=== PATIENT | male | born 1990 | race Caucasian/White ===

== ENCOUNTER 2016-05-01 22:55 | Emergency (ER) | payer BC, OTHER ==
[~2016-05-01] VITALS: Ht 167.6 cm; Wt 65.2 kg
[~2016-05-01 22:55] MED LIST: CYCL10TA6 PO; DIAZ10TA PO; GABA-113 PO; OXYC1TAB3 PO
[2016-05-01 23:01] VITALS: TEMP 36.8; Ht 167.6 cm; Wt 65.2 kg
[2016-05-01] MEDS ORDERED: MoRPHine SULFATE 10 MG/ML CARP/VIAL IM STA (23:24)
[2016-05-01] MEDS ORDERED: GABA800T PO (23:34)
[2016-05-01] MEDS ORDERED: CYCLOBENZAPRINE HCL 10 MG TAB PO STA (23:47)
--- NOTE | 2016-05-02 00:28 | EMERGENCY ROOM VISIT NOTE ---
History First contact with patient: 23:06 Chief Complaint: BACK PAIN Stated Complaint: LOWER BACK PAIN, PAIN SHOOTING DOWN LEFT LEG History of Present Illness The patient is a 25 year old male who presents to the Emergency Room with complaints of ongoing low back pain for the past several years that radiates to his right leg is giving firstly worse. He had back surgery last year. He follows with [facility]. He is on chronic narcotics and muscle relaxants. Patient describes the pain as aching, ranging in severity 8 out of 10 worse with movement and better with rest. Patient denies loss of bowel or bladder control, saddle anesthesia, fever, chills, IV drug abuse, abdominal pain, chest pain or any other medical complaints. Patient states he's done physical therapy with no improvement of symptoms. He has an appointment in May for follow-up with spine. He is requesting an earlier appointment. Patient is also requesting imaging on his back. Review of Systems See HPI for pertinent positives & negatives. A total of 10 systems reviewed and were otherwise negative. Past Medical/Surgical History Back pain Social History Smoking Status: Current Every Day Smoker Alcohol Use: none Drug Use: none Marital Status: single Housing Status: lives with family Occupation Status: employed Current/Historical Medications Scheduled Gabapentin (Neurontin), 800 MG PO BID Scheduled PRN Diazepam (Valium), 5 MG PO Q8 PRN for Anxiety Oxycodone Ir (Roxicodone Ir), 1-2 TAB PO Q6 PRN for Pain Allergies Coded Allergies: No Known Allergies (Unverified , 05/01/16) Physical Exam Vital Signs Date Time Temp Pulse Resp B/P Pulse Ox O2 Delivery O2 Flow Rate FiO2 05/01/16 23:01 36.8 98 20 160/80 99 Room Air Physical Exam VITALS: Vitals are noted on the nurse's note and reviewed by myself. Vital signs stable. GENERAL: White male walking around treatment room, in no acute distress, nondiaphoretic, well-developed well-nourished. SKIN: Capillary reflex less than 2 seconds. HEENT: Normocephalic. PERRLA. EOMI. Nares patent. Mucous membranes moist. Neck is supple without nuchal rigidity. HEART: Regular rate and rhythm without murmurs gallops or rubs. LUNGS: Clear to auscultation bilaterally without wheezes, rales or rhonchi. No retractions or accessory muscle use. ABDOMEN: Positive bowel sounds x 4. Normal tympanic percussion. Soft, nontender, without masses or organomegaly. Melo sign negative. No guarding or rebound tenderness. MUSCULOSKELETAL: No gross musculoskeletal defects. No thoracic tenderness on exam. Minimal lumbar tenderness on exam. Positive straight leg raise on the right. Patient can walk on toes and heels. 5 out of 5 strength throughout. NEURO: Patient was alert and oriented to person place and time. Normal sensation to light and sharp touch. Deep tendon reflexes 2+ patella. No focal neurological deficits. Medical Decision & Procedures Medications Administered Medications (Trade) Dose Ordered Sig/Keila Route Start Time Stop Time Status Last Admin Dose Admin Morphine Sulfate (MoRPHine SULFATE INJ) 8 mg NOW STAT IM 05/01/16 23:24 05/01/16 23:26 DC 05/01/16 23:35 8 MG Cyclobenzaprine HCl (Flexeril Tab) 10 mg NOW STAT PO 05/01/16 23:47 05/01/16 23:48 DC 05/01/16 23:52 10 MG ED Course Prior records/ancillary studies reviewed. Triage Nursing notes reviewed. Additional history obtained from friend. The patient's history was concerning for back pain. Differential diagnosis: Etiologies such as musculoskeletal, disc herniation, fracture, aortic disease, metastatic disease, cord compression, discitis, infection, renal colic, gastrointestinal, acute exacerbation of chronic back pain, sciatica, cauda equina, as well as others were entertained. Physical findings: As above. No focal neurologic findings noted. ER treatment provided: Morphine IM On reassessment the patient felt better. Diagnostics interpreted by me: Imaging studies: CT L SPINE: No evidence of acute fracture. Postsurgical changes at L5-S1 with the right L5 screw extending through the facet joint and the right anterolateral aspect of the central canal. Evaluation limited by hardware artifact. Grade 2 anterolisthesis at L5-S1. This appears to be consistent with lumbar radiculopathy. Patient was neurovascularly and neurologically intact. No deficits on exam. Case management will contact his spine doctor to try to get an earlier appointment. He was advised to follow-up as scheduled and to continue his current regimen as outlined by spine doctor. He is advised to return to the ER immediately for severe pain, inability to walk, loss of bowel bladder control, worsening signs or symptoms or as needed. The patient's physical examination and detailed history did not reveal any red flags for back pain such as those listed in the differential diagnosis. Therefore advanced diagnostics and consultations were felt to be unwarranted. By the evaluation outlined above emergent etiologies such as fracture, aortic disease, metastatic disease, infection, renal colic, gastrointestinal, cord compression, cauda equina, as well as others were deemed relatively unlikely. The pt informed about the findings as listed above. All questions were answered and pleased with the treatment. Return instructions were outlined and the patient was discharged in stable condition. Referral: The patient was referred back to spine or primary care physician for follow-up in 2 to 3 days for a recheck of the current condition. Medical Decision As above [place] Drug Monitoring Program Search Results: patient reviewed within database, see additional documentation (patient receives chronic narcotics) Impression Primary Impression: Lumbar radiculopathy Departure Information Dispostion Home / Self-Care Condition GOOD Referrals Anthony Reaves M.D. (PCP) Patient Instructions My [facility] Additional Instructions DO NOT drive, drink alcohol, operate machinery, or perform dangerous activities today. You were given medications in the ER that can affect your ability to safely function or operate a vehicle. Continue your Oxycodone (OxyIR) 5mg: Take 1-2 pills every four hours for breakthrough pain. Avoid alcohol, operating machinery or dangerous equipment, working on ladders or roofs, DRIVING, or situations where being under the influence may be dangerous. It is recommended to use an [id number] stool softener such as Colace, 100mg twice daily while taking this medication to avoid constipation. Ibuprofen(Motrin, Advil) may be used for fever or pain. Use 600mg every six hours as needed. Take with food. Avoid using more than 2400mg in a 24 hour period. Do not use 2400mg per day for more than three consecutive days without physician direction. Prolonged inappropriate use can lead to stomach upset or ulcers. This medication can be taken if you need to drive, work, or perform activities which may be dangerous when taking narcotic pain medication. (AND/OR) Acetaminophen(Tylenol) may be used for fever or pain. Use 1000mg every six hours as needed. Avoid using more than 3000mg in a 24 hour period. This medication can be taken if you need to drive, work, or perform activities which may be dangerous when taking narcotic pain medication. Rest and avoid heavy lifting until your symptoms resolve and then gradually return to full activity. A good rule of thumb is if it hurts your back to perform a certain activity, then it should be avoided until you are healthy again. A heating pad, warm compresses, or a hot shower may help with tight muscles and can be done several times a day as needed. Continue current medications. Return to the ER immediately for any numbness, tingling, severe pain, loss of control of your bowels or bladder, inability to walk, or as needed. Follow up with your primary care physician/orthopedics spine within 3-5 days for a recheck of your current condition.
[2016-05-02 00:35] VITALS: BP 160/80; PULSE 60; O2SAT 99
--- NOTE | 2016-05-02 07:42 | DIAGNOSTIC IMAGING REPORT ---
CT LUMBAR SPINE WITHOUT CT DOSE: 595.81 mGy.cm CLINICAL HISTORY: Low back pain with right leg radiculopathy. TECHNIQUE: Helical images were acquired in transverse plane. Reformatted sagittal and coronal images were reviewed. CONTRAST: No contrast was administered COMPARISON STUDY: 08/19/2015 FINDINGS: L1-2 level: There is no evidence of significant disc bulge or focal herniation. There is no evidence of spinal or foraminal stenosis. L2-3 level: There is no evidence of significant disc bulge or focal herniation. There is no evidence of spinal or foraminal stenosis. L3-4 level: There is no evidence of significant disc bulge or focal herniation. There is no evidence of spinal or foraminal stenosis. L4-5 level: There is a minor circumferential disc bulge. There is minor tract or spinal canal narrowing. There is no significant foraminal narrowing L5-S1 level: There are postsurgical changes of an L5-S1 discectomy and interbody fusion. There is a posterior laminectomy. There are endplate erosive changes. There is a grade 1-2 spondylolisthesis of L5 on S1. There is posterior pedicle screw fixation. The right screw traverses the right facet joint as well as the lateral aspect of the spinal canal. This remains unchanged in appearance when compared the prior July 2015 study. IMPRESSION: 1. No significant change from the prior July 2015 study 2. Postsurgical changes at the L5-S1 level 3. The right L5 interpedicular screw extends to the L4-5 facet joint. 4. Grade 1-2 spondylolisthesis of L5 on S1. Electronically signed by: Nik Emerson M.D. 05/02/2016 7:40 AM Dictated Date/Time: 05/02/2016 7:30 AM
== END 2016-05-02 00:32 | disposition home or self-care (01) ==
LOC: C.EDB 22:56 → C.EDC 05-02 00:32
DX: M54.16 Radiculopathy, lumbar region (principal); F17.200 Nicotine dependence, unspecified, uncomplicated

== ENCOUNTER 2016-05-28 22:54 | Emergency (ER) | payer BC, OTHER ==
[~2016-05-28] VITALS: Ht 167.6 cm; Wt 66.4 kg
[~2016-05-28 22:54] MED LIST changes: -CYCL10TA6 PO; -GABA-113 PO; +GABA800T PO
[2016-05-28 23:02] VITALS: Ht 167.6 cm; Wt 66.4 kg
[2016-05-29] MEDS ORDERED: MoRPHine SULFATE 10 MG/ML CARP/VIAL IM STA (00:20)
--- NOTE | 2016-05-29 00:25 | EMERGENCY ROOM VISIT NOTE ---
History Report prepared by Eb: Ashley Williamson Under the Supervision of: Dr. Sylvia Ross D.O. First contact with patient: 23:45 Chief Complaint: BACK PAIN Stated Complaint: SEVERE BACK PAIN History of Present Illness The patient is a 25 year old male who presents to the Emergency Room with complaints of worsening lower back pain starting two weeks C[employer]. The patient rates his current pain as a 9/10 in severity. The patient states that he has had a spinal transfusion about 1 year ago. He states he was seen at the ED about 1 month ago for worsening pain and had a CT scan. The patient states he saw his surgeon at [facility] and they informed him that he needs to make a decision for the possibility of another surgery needed for a screw that has shifted. The patient states that he has had weakness in his legs ,and numbness in both feet from his ankles down. The patient states that the pain in his back radiates down both his legs. The patient denies any loss of control of his bowels or bladder but states he has been experiencing some constipation. The patient states that his surgeon gave him 5 mg Oxycodone to take twice a day but he states that it does not relive his pain. The patient states that he is having another MRI for possibly upcoming surgeon in 10 days. The patient states that he did not take his second dose of Valium after work today because he came straight into the ED tonight. The patient states he takes Valium twice a day every day. Source of History: patient Onset: two weeks C[employer] C[employer] MEAT Position: back (lower) Symptom Intensity: 9/10 Timing: worsening Associated Symptoms: + numbness (both feet from his ankles down), + weakness (both legs) Note: Associated symptoms: constipation. Patient denies loss of control of bladder or bowels. Review of Systems See HPI for pertinent positives & negatives. A total of 10 systems reviewed and were otherwise negative. Past Medical & Surgical Surgical Problems: (1) H/O Spinal surgery Family History Patient reports no known family medical history. Social History Smoking Status: Current Every Day Smoker Alcohol Use: none Drug Use: none Marital Status: single Housing Status: lives with family Occupation Status: employed Current/Historical Medications Scheduled Gabapentin (Neurontin), 800 MG PO BID Scheduled PRN Diazepam (Valium), 5 MG PO Q8 PRN for Anxiety Oxycodone Ir (Roxicodone Ir), 1-2 TAB PO Q6 PRN for Pain Allergies Coded Allergies: No Known Allergies (Unverified , 05/29/16) Physical Exam Vital Signs Date Time Temp Pulse Resp B/P Pulse Ox O2 Delivery O2 Flow Rate FiO2 05/29/16 01:04 36.7 100 18 145/89 99 05/29/16 00:56 100 18 158/100 18 Room Air 05/28/16 23:02 36.7 93 20 148/80 99 Room Air Physical Exam HEENT: Head - normocephalic and atraumatic Pupils are equal, round, and reactive to light. Extraocular eye muscles are intact, and sclera are anicteric. Nose - moist nasal mucosa without discharge. Mouth - moist buccal mucosa. Oropharynx is nonerythematous and there is no tonsillar exudate or edema noted. Neck: Supple; no JVD, nuchal rigidity, cervical lymphadenopathy. Heart: Regular rate and rhythm. There is a normal S1 and S2 with no murmurs, clicks, or gallops appreciated. Lungs: Clear to auscultation bilaterally with no wheezes, rales, or rhonchi. Abdomen: Soft, completely nontender, nondistended, with good bowel sounds. There are no palpable pulsatile masses or hepatosplenomegaly. There is no guarding, rigidity, or rebound noted. Back: Reproducible discomfort over the lumbar spine scar and bilateral PSIS. Extremities: No evidence of cyanosis, clubbing, or edema. There are easily palpable peripheral pulses. Skin: warm and dry with good turgor and no rashes. Medical Decision & Procedures Medications Administered Medications (Trade) Dose Ordered Sig/Keila Route Start Time Stop Time Status Last Admin Dose Admin Morphine Sulfate (MoRPHine SULFATE INJ) 8 mg NOW STAT IM 05/29/16 00:20 05/29/16 00:21 DC 05/29/16 00:35 8 MG Procedure Medications Administered: Morphine Sulfate ED Course 0011: Past medical records reviewed. The patient was evaluated in room A3. A complete history and physical exam was performed. 0020: Ordered Morphine Sulfate 8 mg IM. 0034: The nursing staff informed me that the patient is expressing the desire to sign out AMA. 0035: I discussed with the patient that he just received a narcotic and is not able to leave yet. 0110: Upon reevaluation, the patient was resting comfortably. The patient was discharged home. Medical Decision The patient is a 25 year old male who presents to the ED with lower back pain. Differential diagnosis includes but is not limited to cauda equina syndrome, lumbar radiculopathy, acute exacerbation of chronic back pain, and drug seeking behavior. The patient has a known history of failed lumbar spinal surgery. He is currently being followed at [facility] for this. He underwent CT scan of the lumbar spine recently and had follow-up arranged at [facility]. They have ordered the patient to have MRI of the lumbar spine and explained that he will need to make a decision with regards to subsequent spinal surgeries and revision of hardware. The patient presents here today stating that he is having low back pain that is unrelenting despite taking his dose of gabapentin, oxycodone, and Valium. The patient denies any loss of control of his bowels or bladder. He states that he sometimes has difficulty moving his bowels because of constipation. The patient describes low back pain that extends into both buttocks and through to both of his legs. He explains that his symptoms are exactly the same as they were 2 months ago but no longer wants to deal with the pain. He does describe weakness in both of his legs which is unchanged from 2 months ago. The patient was given substernal pain medication here in the emergency department was encouraged to follow up this morning with the folks at [facility]. [place] Drug Monitoring Program Search Results: patient reviewed within database Drug Monitoring Findings: coincided with the patient's descriptions of prescriptions. Impression Primary Impression: Low back pain Scribe Attestation The scribe's documentation has been prepared under my direction and personally reviewed by me in its entirety. I confirm that the note above accurately reflects all work, treatment, procedures, and medical decision making performed by me. Departure Information Dispostion Home / Self-Care Referrals Anthony Reaves M.D. (PCP) Forms HOME CARE DOCUMENTATION FORM, IMPORTANT VISIT INFORMATION Patient Instructions My [facility] Additional Instructions Follow up with [facility] with regards to your surgery. Take the oxycodone and valium as directed
[2016-05-29 01:04] VITALS: BP 145/89; PULSE 100; TEMP 36.7; O2SAT 99
== END 2016-05-29 01:00 | disposition home or self-care (01) ==
LOC: C.EDB 22:55 → C.EDA 05-29 01:00 → CANBEDREQ 05-29 01:00
DX: M54.5 Low back pain (principal); F17.210 Nicotine dependence, cigarettes, uncomplicated; Z79.899 Other long term (current) drug therapy

== ENCOUNTER 2016-08-16 19:46 | Emergency (ER) | payer BC, OTHER ==
[~2016-08-16] VITALS: Ht 167.6 cm; Wt 57.9 kg
[2016-08-16 19:53] VITALS: Ht 167.6 cm; Wt 57.9 kg
[2016-08-16] MEDS ORDERED: SODIUM CHLORIDE 0.9% 1000ML 1,000 ML IV STA (20:58)
[2016-08-16] MEDS ORDERED: MoRPHine SULFATE 10 MG/ML CARP/VIAL IV STA (20:58)
[2016-08-16] MEDS ORDERED: ONDANSETRON INJ 2 MG/ML 2 ML VIAL IV STA (20:58)
[2016-08-16] MEDS ORDERED: MORP1TAB11 PO (21:12)
--- NOTE | 2016-08-16 21:16 | DIAGNOSTIC IMAGING REPORT ---
SINGLE VIEW CHEST CLINICAL HISTORY: Dyspnea. FINDINGS: An AP, portable, upright chest radiograph is compared to study dated 07/11/2015. The examination is degraded by portable technique and patient rotation. The cardiomediastinal silhouette is unremarkable. The lungs and pleural spaces are clear. No pneumothorax is seen. The bony thorax is grossly intact. IMPRESSION: No active disease in the chest. Electronically signed by: Thompson Chand M.D. 08/16/2016 9:14 PM Dictated Date/Time: 08/16/2016 9:14 PM
[2016-08-16 22:04] LABS: BASO % 0.5 %; BASO ABS # 0.05 K/uL (0-0.2); EOS % 2.1 %; HEMATOCRIT 36.2 % (42-52); IG% 0.3 %; LYMPH % 26.9 %; LYMPH ABS # 2.86 K/uL (1.2-3.4); MEAN CELL VOLUME 60.1 fL (80-100); MEAN CORPUSCULAR HEMOGLOBIN 19.3 pg (25-34); MEAN PLATELET VOLUME 8.8 fL (7.4-10.4); MONO % 7.5 %; NEUT % 62.7 %; PLATELET COUNT 461 K/uL (130-400); RED BLOOD COUNT 6.02 M/uL (4.7-6.1); WHITE BLOOD COUNT 10.65 K/uL (4.8-10.8)
[2016-08-16 22:21] LABS: ALT/SGPT 30 U/L (12-78); BLOOD UREA NITROGEN 16 mg/dl (7-18); BUN/CREATININE RATIO 11.9 (10-20); CALCIUM 9.5 mg/dl (8.5-10.1); CARBON DIOXIDE 31 mmol/L (21-32); CHLORIDE 100 mmol/L (98-107); GLUCOSE 84 mg/dl (70-99); POTASSIUM 3.6 mmol/L (3.5-5.1); SODIUM 138 mmol/L (136-145)
[2016-08-16] MEDS ORDERED: HYDROmorphone INJ 1 MG/ML SYR IV STA ×2 (22:21→23:59)
[2016-08-16 22:24] LABS: ALKALINE PHOSPHATASE 111 U/L (45-117); AST/SGOT 15 U/L (15-37)
[2016-08-16 22:36] LABS: URINE APPEARANCE CLOUDY (CLEAR); URINE BILIRUBIN NEG (NEG); URINE COLOR YELLOW; URINE NITRITE POS (NEG); URINE SPECIFIC GRAVITY 1.028 (1.000-1.030); UROBILINOGEN NEG (NEG)
[2016-08-16 22:38] LABS: MANUAL MICROSCOPIC REQUIRED? NO; REVIEW REQ? NO
[2016-08-16 22:40] LABS: COMPLETE YES; MICROCYTOSIS PRESENT; OVALOCYTES 1+
[2016-08-16] MEDS ORDERED: OPTIRAY 320 IV PRN (23:15)
[2016-08-17] MEDS ORDERED: CIPR1TAB10 PO (00:51)
[2016-08-17 00:57] VITALS: BP 117/61; PULSE 68; TEMP 36.8; O2SAT 98
[2016-08-17] MEDS ORDERED: CIPROFLOXACIN 500MG HOME PACK PO ONE (01:00)
--- NOTE | 2016-08-17 02:23 | EMERGENCY ROOM VISIT NOTE ---
ED Visit Note First contact with patient: 20:39 Chief Complaint: Pain and fever. History of Present Illness: Mr. Vaca is a 25-year-old white male who ambulates into the ED accompanied by female friend and his father. Historically patient reports on 08/02/2016 he had removal of posterior L5-S1 pedicle screw instrumentation and anterior removal of L5-S1 interbody with L5- S1 placement of SynFix low-pressure device and anterior arthrodesis at [facility]. He was discharged on August 07. His hospital course was not complicated and he was discharged home with office follow-up on September 04. Patient reports since being discharged he has not been able to control his pain at his surgical sites. He reports he has noticed a lot of redness, eructation and drainage from his surgical sites. He has difficulty describing his discomfort in these areas. He rates his discomfort 9/10. His pain is nonradiating. His pain worsens with palpation. He has not identified any alleviating factors related to the pain. He reports he has been taking his prescribed MS Contin and Percocet without relief of his discomfort. Associated with his pain he reports he has noticed erythema and edema around his incision site, he has been experiencing fever, purulent drainage from his wound and a numbness sensation in the left groin area. He also reports he is mildly short of breath but this is been ongoing since his last admission and has not worsened in intensity and he has noted urinary burning without increased her nares frequency or hematuria.. He denies chills, sweats, skin eruptions, skin color changes, chest pain, palpitations, orthopnea, dependent edema, abdominal pain, vomiting, decreased appetite, rectal bleeding, black/tarry stools. Review of Systems: As noted above in history of present illness. All body systems were reviewed and found to be negative as noted above. Past Medical History: As previously noted and hypertension, unspecified skin disorder. Current Medications: Morphine, Neurontin, OxyIR and Valium. Allergies to Medications: Patient denies. Social History: Patient is currently employed; he feels safe in his home environment; he admits to tobacco use. Physical Examination: Vital Signs: Date Time Temp Pulse Resp B/P (MAP) Pulse Ox O2 Delivery O2 Flow Rate FiO2 08/17/16 00:57 36.8 68 18 117/61 98 6/23/17 00:17 68 18 117/61 98 Room Air 08/16/16 22:15 84 18 149/87 95 Room Air 08/16/16 19:53 36.8 106 18 124/75 95 Room Air GENERAL: 25-year-old male in moderate distress due to pain, nontoxic-appearing, afebrile and hemodynamically stable. NEUROLOGICAL: Awake, alert and oriented to person, place and time. Answering questions appropriately and following commands. Normal gait. Good hand eye coordination. No focal motor sensory deficits. SKIN: Warm, dry and pink. Abdomen: The patient's surgical site is clean dry and intact. I do not see any lymphangitis and I do not palpate any abscess. Do not appreciate any drainage from the incision site. Lumbar Back. The patient's surgical site is clean dry and intact. I do not see any lymphangitis and I do not palpate any abscess. Do not appreciate any drainage from the incision. HEENT: Atraumatic and normocephalic. PERRLA. Sclera white and conjunctiva pink. No drainage from naris. Oral cavity moist and pink. Pharynx is nonerythematous or edematous. Speech normal. No lymphadenopathy. Trachea midline. No jugular venous distention. BACK: No tenderness over the bony cervical and thoracic spine. Patient does have moderate tenderness over the bony spine in the area of his incision just left of the lumbar spine. I do not appreciate any bony crepitus, bony deformity or ecchymosis. Because of his pain he refused range of motion testing and straight leg raise testing. No CVA tenderness. THORAX: Lungs sounds are clear to auscultation and equal bilaterally with symmetrical chest wall. No wheezing, rales or rhonchi. HEART: Regular rate and rhythm. No gallops, rubs or murmurs are appreciated. ABDOMEN: Flat, soft and nontender. Positive bowel sounds in all quadrants. No guarding, rigidity or organomegaly. EXTREMITIES: Moves all extremities well on command and with purpose. All distal neurovascular statuses are intact and equal bilaterally. Patient refused deep tendon reflex testing. 4/5 muscle strength in flexion and extension, pronation and supination and internal rotation of the hips and plantar flexion and dorsiflexion of the ankles and great toes. He was able to distinguish light sensations through all dermatomes of the legs. ED Course: Patient is assessed as noted above. Patient's medication list was reviewed. Laboratory Testing: Test 08/16/16 20:50 08/16/16 22:15 Range/Units White Blood Count 10.65 4.8-10.8 K/uL Red Blood Count 6.02 4.7-6.1 M/uL Hemoglobin 11.6 14.0-18.0 g/dL Hematocrit 36.2 42-52 % Mean Corpuscular Volume 60.1 80-100 fL Mean Corpuscular Hemoglobin 19.3 25-34 pg Mean Corpuscular Hemoglobin Concent 32.0 32-36 g/dl Platelet Count 461 130-400 K/uL Mean Platelet Volume 8.8 7.4-10.4 fL Neutrophils (%) (Auto) 62.7 % Lymphocytes (%) (Auto) 26.9 % Monocytes (%) (Auto) 7.5 % Eosinophils (%) (Auto) 2.1 % Basophils (%) (Auto) 0.5 % Neutrophils # (Auto) 6.69 1.4-6.5 K/uL Lymphocytes # (Auto) 2.86 1.2-3.4 K/uL Monocytes # (Auto) 0.80 0.11-0.59 K/uL Eosinophils # (Auto) 0.22 0-0.5 K/uL Basophils # (Auto) 0.05 0-0.2 K/uL RDW Standard Deviation 34.1 36.4-46.3 fL RDW Coefficient of Variation 16.0 11.5-14.5 % Immature Granulocyte % (Auto) 0.3 % Immature Granulocyte # (Auto) 0.03 0.00-0.02 K/uL Microcytosis PRESENT Ovalocytes 1+ Sodium Level 138 136-145 mmol/L Potassium Level 3.6 3.5-5.1 mmol/L Chloride Level 100 98-107 mmol/L Carbon Dioxide Level 31 21-32 mmol/L Anion Gap 7.0 3-11 mmol/L Blood Urea Nitrogen 16 7-18 mg/dl Creatinine 1.30 0.60-1.40 mg/dl Est Creatinine Clear Calc Drug Dose 70.5 ml/min Estimated GFR () 87.3 Estimated GFR (Non- 75.3 BUN/Creatinine Ratio 11.9 10-20 Random Glucose 84 70-99 mg/dl Calcium Level 9.5 8.5-10.1 mg/dl Total Bilirubin 0.2 0.2-1 mg/dl Direct Bilirubin < 0.1 0-0.2 mg/dl Aspartate Amino Transf (AST/SGOT) 15 15-37 U/L Alanine Aminotransferase (ALT/SGPT) 30 12-78 U/L Alkaline Phosphatase 111 45-117 U/L Total Protein 7.9 6.4-8.2 gm/dl Albumin 3.9 3.4-5.0 gm/dl Lipase 96 73-393 U/L Urine Color YELLOW Urine Appearance CLOUDY CLEAR Urine pH 6.0 4.5-7.5 Urine Specific [place] 1.028 1.000-1.030 Urine Protein NEG NEG Urine Glucose (UA) NEG NEG Urine Ketones TRACE NEG Urine Occult Blood NEG NEG Urine Nitrite POS NEG Urine Bilirubin NEG NEG Urine Urobilinogen NEG NEG Urine Leukocyte Esterase SMALL NEG Urine WBC (Auto) >30 0-5 /hpf Urine RBC (Auto) 0-4 0-4 /hpf Urine Hyaline Casts (Auto) 5-10 0-5 /lpf Urine Epithelial Cells (Auto) 5-10 0-5 /lpf Urine Bacteria (Auto) 4+ NEG Blood Culture: Pending Urine Culture: Pending IV Contrast Abdominal/Pelvic CT: Was reviewed by myself and read by the radiologist showing no acute intra-abdominal process, no free air, free fluid or bowel obstruction, solid organs are unremarkable, appendix was not identified but no secondary signs of acute appendicitis is were noted, there was interval removal of a posterior pedicle screw and marlyn fusion at L5 S1 laminectomy was noted at L5, mild subcutaneous stranding in the lower back at the level of L5, no obvious fluid collections in the paraspinous soft tissues, anterior plate screw fusion at L5/S1, grade 1anterolisthesis of L5 relative to S1 with chronic bilateral pars defect. No fractures. Patient was hydrated with normal saline and initially received 8 mg of morphine IV for pain and 4 mg of Zofran IV for nausea. On reassessment's he reports worsening pain and received an additional total of 2 mg Dilaudid IV. Patient's case was reviewed with Dr. Calderon; we agreed on diagnostic approach, treatment, disposition and plan. Patient's case was consulted with Dr. Leon, neurosurgery at [facility]; he recommended that the patient be brought to [facility] either by ambulance or private vehicle for further evaluation and care but did caution that admission could not be guaranteed or he could go home and continue his current medications and call the neurosurgical clinic for follow-up; patient said he would continue his current medications and call for follow-up. Patient was given 500 mg of ciprofloxacin by mouth for antibiotic coverage for urinary tract infection. Patient was educated about today's findings and instructed on his treatment plan ; he verbalizes understanding and agreement with this plan. Clinical Impression: Urinary tract infection. Postsurgical site pain. Decision-Making: Initially my differential diagnosis I considered surgical infection, surgical abscess, diverticulitis, hepatitis, pancreatitis, and other causes. Disposition: Patient discharged home in stable condition accompanied by his father and female friends; prior to departure he was reassessed and subjectively reported he was feeling much better and rated his discomfort 4/10. Plan: Patient was encouraged to continue current medications. Patient was prescribed ciprofloxacin 500 mg 2 times a day for 10 days. Patient was encouraged to follow-up with the neurosurgical clinic at [facility]. Patient was encouraged to follow-up with his primary care provider for recheck and culture results of vision urinalysis. Patient was encouraged return to the ED for worsening/uncontrolled pain, worsening fevers, worsening symptoms or any new/concerning symptoms.
--- NOTE | 2016-08-17 07:45 | DIAGNOSTIC IMAGING REPORT ---
ABDOMEN AND PELVIS CT WITH IV CONTRAST CT DOSE: 290.57 mGy.cm HISTORY: Lumbar spine surgery. s/p sugery X2; increasing lumbar spine pain, surgical wound drainage, fevers TECHNIQUE: Multiaxial CT images of the abdomen and pelvis were performed following the use of intravenous contrast. COMPARISON STUDY: Lumbar spine CT 05/01/2016. FINDINGS: The lung bases are essentially clear. No pneumoperitoneum. No pneumatosis. Removal of the posterior fusion hardware at L5-S1. There is been interval placement of anterior fusion hardware at L5-S1. Prior posterior decompression L5-S1. Trace amount of fluid and soft tissue thickening anterior to the L5-S1 level and partially surrounding the fusion hardware. This measures a maximal thickness of 1 cm on image 314. There is also punctate foci of gas within this small collection. This extends along the left iliac location. No underlying bony destruction. No posterior fluid collection seen at the lumbar spine. Prior left anterior pelvic wall incision. The bladder is unremarkable. The liver, spleen, adrenal glands, pancreas, gallbladder, and kidneys are unremarkable. No retroperitoneal lymphadenopathy. No bowel wall thickening or obstruction. There is appendix is unremarkable. Bilateral pars fractures at L5 are again noted. No fractures within the lumbar spine. IMPRESSION: 1. Interval anterior fusion at L5-S1 with removal of the L5-S1 posterior fusion hardware. Trace fluid anterior to the L5-S1 level and tracking along the left internal iliac location. This contains a few punctate foci of gas and partially surrounds the anterior fusion hardware. No underlying bony destruction. This is nonspecific but could represent resolving postoperative change. However, an infected fluid collection would be impossible to exclude. 2. No bowel wall thickening or obstruction. Electronically signed by: Franck Vyas M.D. 08/17/2016 7:43 AM Dictated Date/Time: 08/17/2016 7:34 AM
== END 2016-08-17 00:57 | disposition home or self-care (01) ==
LOC: C.EDB 19:51 → C.EDC 08-17 00:57
DX: N39.0 Urinary tract infection, site not specified (principal); G89.18 Other acute postprocedural pain; I10 Essential (primary) hypertension; Z87.2 Personal history of diseases of the skin and subcutaneous tissue; F17.200 Nicotine dependence, unspecified, uncomplicated; Z79.899 Other long term (current) drug therapy; R11.2 Nausea with vomiting, unspecified

== ENCOUNTER 2016-08-31 01:57 | Emergency (ER) | payer BC, OTHER ==
[~2016-08-31] VITALS: Ht 167.6 cm; Wt 57.2 kg
[~2016-08-31 01:57] MED LIST changes: +MORP1TAB11 PO
[2016-08-31 02:01] VITALS: TEMP 36.7; Ht 167.6 cm; Wt 57.2 kg
[2016-08-31] MEDS ORDERED: HYDROmorphone INJ 1 MG/ML SYR IV STA ×2 (02:53→03:37)
[2016-08-31 03:06] LABS: BASO % 0.6 %; BASO ABS # 0.05 K/uL (0-0.2); EOS % 4.3 %; HEMATOCRIT 35.9 % (42-52); IG% 0.1 %; LYMPH % 24.4 %; LYMPH ABS # 2.14 K/uL (1.2-3.4); MEAN CELL VOLUME 61.2 fL (80-100); MEAN CORPUSCULAR HEMOGLOBIN 20.1 pg (25-34); MEAN CORPUSCULAR HGB CONC 32.9 g/dl (32-36); NEUT % 62.6 %; PLATELET COUNT 291 K/uL (130-400); RED BLOOD COUNT 5.87 M/uL (4.7-6.1); WHITE BLOOD COUNT 8.77 K/uL (4.8-10.8)
[2016-08-31 03:32] LABS: ALT/SGPT 33 U/L (12-78); AST/SGOT 20 U/L (15-37); BLOOD UREA NITROGEN 7 mg/dl (7-18); BUN/CREATININE RATIO 5.3 (10-20); CALCIUM 8.9 mg/dl (8.5-10.1); CARBON DIOXIDE 30 mmol/L (21-32); CHLORIDE 108 mmol/L (98-107); GLUCOSE 67 mg/dl (70-99); POTASSIUM 3.7 mmol/L (3.5-5.1); SODIUM 143 mmol/L (136-145)
[2016-08-31 03:35] LABS: ALKALINE PHOSPHATASE 138 U/L (45-117); C-REACTIVE PROTEIN 0.29 mg/dl (0-0.29)
[2016-08-31 03:38] LABS: COMPLETE YES; MICROCYTOSIS PRESENT; OVALOCYTES 1+
--- NOTE | 2016-08-31 04:15 | EMERGENCY ROOM VISIT NOTE ---
History First contact with patient: 02:20 Chief Complaint: BACK PAIN Stated Complaint: BACK PAIN History of Present Illness The patient is a 25 year old male who presents to the Emergency Room with complaints of back pain. The patient states that he had back surgery performed at [facility] approximately 3 weeks ago. The patient reports that he has incisions in both his back and his abdomen. He surgery was performed by a neurosurgeon in conjunction with a cardiovascular surgeon. He states that he has pain throughout the back which has been unchanged since surgery. The patient has been taking oxycodone and morphine for pain with little relief. He reports that he was seen here and diagnosed with a urinary tract infection. He states he followed up with his cardiovascular surgeon and has a follow-up scheduled with his neurosurgeon in 4 days. The patient states that his urinary symptoms have improved, but he still has burning at the end of urination. He rates his back pain a 10/10. He states the pain radiates into bilateral legs and he has numbness of the left foot, both of which are normal for him. He denies any new numbness or weakness. He denies any urinary or bowel incontinence. He reports he has had intermittent fever since the surgery up to 101F. He denies abdominal pain or vomiting. Review of Systems A complete 10 point review of systems was reviewed with the patient with pertinent positives and negatives as per history of present illness. All else were negative. Past Medical/Surgical History Surgical Problems: (1) H/O Spinal surgery Family History Patient reports no known family medical history. Social History Smoking Status: Current Every Day Smoker Alcohol Use: none Drug Use: none Marital Status: single Housing Status: lives with family Occupation Status: employed Current/Historical Medications Scheduled Gabapentin (Neurontin), 800 MG PO BID Scheduled PRN Diazepam (Valium), 5 MG PO Q8 PRN for Anxiety Morphine Sulfate (Morphine Sulfate Er), 1 TAB PO DAILY PRN for pain\ Oxycodone Ir (Roxicodone Ir), 1-2 TAB PO Q6 PRN for Pain Allergies Coded Allergies: No Known Allergies (Unverified , 08/31/16) Physical Exam Vital Signs Date Time Temp Pulse Resp B/P (MAP) Pulse Ox O2 Delivery O2 Flow Rate FiO2 08/31/16 05:53 81 16 119/72 98 08/31/16 04:30 84 16 107/81 97 Room Air 08/31/16 02:01 36.7 101 16 116/62 96 Room Air Physical Exam VITALS: Vitals are noted on the nurse's note and reviewed by myself. Vital signs stable. GENERAL: This is a 25-year-old male, in no acute distress, nondiaphoretic, well- developed well-nourished. SKIN: There are well-healing surgical scars in the left groin and low back. Both incisions are without erythema, edema or drainage. HEART: Regular rate and rhythm without murmurs gallops or rubs. LUNGS: Clear to auscultation bilaterally without wheezes, rales or rhonchi. ABDOMEN: Soft, nontender to palpation. MUSCULOSKELETAL: Patient is tender to palpation across the lumbar spine. Full range of motion of bilateral lower extremities. NEURO: Patient was alert and oriented to person place and time. Normal sensation to light and sharp touch. Medical Decision & Procedures Laboratory Results 08/31/16 02:57 Red Blood Count 5.87, Mean Corpuscular Volume 61.2, Mean Corpuscular Hemoglobin 20.1, Mean Corpuscular Hemoglobin Concent 32.9, Mean Platelet Volume 10.0, Neutrophils (%) (Auto) 62.6, Lymphocytes (%) (Auto) 24.4, Monocytes (%) (Auto) 8.0, Eosinophils (%) (Auto) 4.3, Basophils (%) (Auto) 0.6, Neutrophils # (Auto) 5.49, Lymphocytes # (Auto) 2.14, Monocytes # (Auto) 0.70, Eosinophils # (Auto) 0.38, Basophils # (Auto) 0.05 08/31/16 02:57 Test 08/31/16 02:57 08/31/16 05:35 White Blood Count 8.77 K/uL (4.8-10.8) Red Blood Count 5.87 M/uL (4.7-6.1) Hemoglobin 11.8 g/dL (14.0-18.0) Hematocrit 35.9 % (42-52) Mean Corpuscular Volume 61.2 fL (80-100) Mean Corpuscular Hemoglobin 20.1 pg (25-34) Mean Corpuscular Hemoglobin Concent 32.9 g/dl (32-36) Platelet Count 291 K/uL (130-400) Mean Platelet Volume 10.0 fL (7.4-10.4) Neutrophils (%) (Auto) 62.6 % Lymphocytes (%) (Auto) 24.4 % Monocytes (%) (Auto) 8.0 % Eosinophils (%) (Auto) 4.3 % Basophils (%) (Auto) 0.6 % Neutrophils # (Auto) 5.49 K/uL (1.4-6.5) Lymphocytes # (Auto) 2.14 K/uL (1.2-3.4) Monocytes # (Auto) 0.70 K/uL (0.11-0.59) Eosinophils # (Auto) 0.38 K/uL (0-0.5) Basophils # (Auto) 0.05 K/uL (0-0.2) RDW Standard Deviation 36.5 fL (36.4-46.3) RDW Coefficient of Variation 16.6 % (11.5-14.5) Immature Granulocyte % (Auto) 0.1 % Immature Granulocyte # (Auto) 0.01 K/uL (0.00-0.02) Microcytosis PRESENT Ovalocytes 1+ Erythrocyte Sedimentation Rate 11 mm/hr (0-14) Anion Gap 5.0 mmol/L (3-11) Est Creatinine Clear Calc Drug Dose 69.7 ml/min Estimated GFR () 87.3 Estimated GFR (Non- 75.3 BUN/Creatinine Ratio 5.3 (10-20) Calcium Level 8.9 mg/dl (8.5-10.1) Total Bilirubin 0.3 mg/dl (0.2-1) Direct Bilirubin < 0.1 mg/dl (0-0.2) Aspartate Amino Transf (AST/SGOT) 20 U/L (15-37) Alanine Aminotransferase (ALT/SGPT) 33 U/L (12-78) Alkaline Phosphatase 138 U/L (45-117) C-Reactive Protein 0.29 mg/dl (0-0.29) Total Protein 7.7 gm/dl (6.4-8.2) Albumin 4.1 gm/dl (3.4-5.0) Urine Color DK YELLOW Urine Appearance CLEAR (CLEAR) Urine pH 6.5 (4.5-7.5) Urine Specific [place] 1.024 (1.000-1.030) Urine Protein NEG (NEG) Urine Glucose (UA) NEG (NEG) Urine Ketones TRACE (NEG) Urine Occult Blood NEG (NEG) Urine Nitrite NEG (NEG) Urine Bilirubin NEG (NEG) Urine Urobilinogen NEG (NEG) Urine Leukocyte Esterase NEG (NEG) Medications Administered Medications (Trade) Dose Ordered Sig/Keila Route Start Time Stop Time Status Last Admin Dose Admin Hydromorphone HCl (Dilaudid Inj) 1 mg NOW STAT IV 08/31/16 02:53 08/31/16 02:54 DC 08/31/16 03:05 1 MG Hydromorphone HCl (Dilaudid Inj) 1 mg NOW STAT IV 08/31/16 03:37 08/31/16 03:40 DC 08/31/16 03:43 1 MG Ketorolac Tromethamine (Toradol Inj) 30 mg NOW STAT IV 08/31/16 05:42 08/31/16 05:43 DC 08/31/16 05:46 30 MG Medical Decision Differential diagnosis includes postoperative infection, chronic back pain, drug -seeking behavior, urinary tract infection, pyelonephritis, among others. The patient is a 25-year-old male who presents today complaining of low back pain. The patient had a surgery at [facility] 3 weeks ago. I did review previous notes. The patient was seen here on August 17. At that time, a CT scan showed a possible infection and it was recommended that the patient go to the [facility] to be evaluated by his surgeon. The patient initially told me that he did go to [place] night, but later said that he was not able to go for several days. I did obtain records from [place]. The patient was seen by the cardiovascular surgery PA a few days after his visit here. They did not feel that the CT represented an infection. At that time, the patient was being treated for a urinary tract infection. He recently finished these antibiotics. On exam today, the patient has well healing surgical incisions with no evidence of infection. He is afebrile. Labs today revealed no leukocytosis. ESR and CRP were not elevated. I do not feel that the patient has a postoperative infection. He has an upcoming appointment scheduled with his surgeon. Urinalysis is not suggestive of infection and will be sent for culture. The patient is on a significant amount of narcotics at home. He was medicated for pain while in the emergency department but will not be provided with any further pain medication. Based on the patient's presentation and work up, I feel the patient is stable for outpatient treatment. The patient was educated to return to the emergency department for any worsening of their current condition or new/concerning symptoms. He will follow up with his surgeon. Medication reconciliation: I attest that I have personally reviewed the patient 's current medication list. Blood pressure screening: Patient was found to have normal blood pressure on screening and does not require follow-up. Impression Primary Impression: Low back pain Departure Information Dispostion Home / Self-Care Condition GOOD Referrals Anthony Reaves M.D. (PCP) Patient Instructions My [facility] [address] Additional Instructions Follow-up with your surgeon as scheduled. You may call them this morning to see if they have any earlier appointments. For pain control, you can use the following [id number] medicines (if >12 yo): - Regular strength (325mg/tab) Tylenol (acetaminophen) 2 tabs every 4-6 hours as needed. Do not exceed 12 tablets in a 24 hour period. Avoid taking more than 4 grams (4000 mg) of Tylenol per day. This includes any other sources of acetaminophen you may take on a regular basis. - Regular strength (200 mg/tab) Advil (ibuprofen) 1-2 tabs every 4-6 hours as needed. Do not exceed a dose of 3200 mg per day. Return to the emergency with any worsening or new/concerning symptoms. Problem Qualifiers Primary Impression: Low back pain
[2016-08-31] MEDS ORDERED: KETOROLAC TROMETHAMINE 60 MG/2 ML VIAL IM STA (05:37)
[2016-08-31] MEDS ORDERED: KETOROLAC TROMETHAMINE 30 MG/ML VIAL IV STA (05:42)
[2016-08-31 05:48] LABS: URINE APPEARANCE CLEAR (CLEAR); URINE BILIRUBIN NEG (NEG); URINE COLOR DK YELLOW; URINE NITRITE NEG (NEG); URINE PH 6.5 (4.5-7.5); URINE SPECIFIC GRAVITY 1.024 (1.000-1.030); UROBILINOGEN NEG (NEG); ZZUR CULT IF INDIC CLEAN CATCH NO
[2016-08-31 05:50] LABS: MANUAL MICROSCOPIC REQUIRED? NO; REVIEW REQ? NO
[2016-08-31 05:53] VITALS: BP 119/72; PULSE 81; O2SAT 98
== END 2016-08-31 05:54 | disposition home or self-care (01) ==
LOC: C.EDB 01:57 → C.EDA 05:54
DX: M54.5 Low back pain (principal); Z98.890 Other specified postprocedural states; F17.210 Nicotine dependence, cigarettes, uncomplicated; Z79.899 Other long term (current) drug therapy

== ENCOUNTER 2016-12-04 13:15 | Emergency (ER) | payer OTHER ==
[~2016-12-04] VITALS: Ht 170.2 cm; Wt 70.0 kg
[2016-12-04 13:36] VITALS: Ht 170.2 cm; Wt 70.0 kg
[2016-12-04] MEDS ORDERED: SODIUM CHLORIDE 0.9% 500ML 500 ML IV STA (14:25)
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
[2016-12-04] MEDS ORDERED: OPTIRAY 320 IV PRN (15:30)
[2016-12-04 15:53] LABS: BASO % 0.3 %; BASO ABS # 0.04 K/uL (0-0.2); HEMATOCRIT 39.4 % (42-52); IG% 0.2 %; LYMPH % 18.7 %; MEAN CELL VOLUME 60.8 fL (80-100); MEAN CORPUSCULAR HEMOGLOBIN 20.4 pg (25-34); MEAN CORPUSCULAR HGB CONC 33.5 g/dl (32-36); MEAN PLATELET VOLUME 9.5 fL (7.4-10.4); MONO % 8.2 %; NEUT % 71.6 %; PLATELET COUNT 262 K/uL (130-400); RED BLOOD COUNT 6.48 M/uL (4.7-6.1); WHITE BLOOD COUNT 13.39 K/uL (4.8-10.8)
[2016-12-04 16:04] LABS: BUN/CREATININE RATIO 11.8 (10-20); CALCIUM 8.5 mg/dl (8.5-10.1); CREATININE 0.98 mg/dl (0.60-1.40); POTASSIUM 3.7 mmol/L (3.5-5.1)
[2016-12-04 16:15] LABS: THYROID STIMULATING HORMONE 0.7 uIu/ml (0.300-4.500)
[2016-12-04 16:40] LABS: COMPLETE YES
[2016-12-04 17:13] LABS: URINE APPEARANCE CLEAR (CLEAR); URINE BILIRUBIN NEG (NEG); URINE COLOR YELLOW; URINE NITRITE NEG (NEG); URINE PH 6.5 (4.5-7.5); URINE SPECIFIC GRAVITY 1.019 (1.000-1.030); UROBILINOGEN NEG (NEG); ZZUR CULT IF INDIC CLEAN CATCH NO
[2016-12-04 17:17] LABS: MANUAL MICROSCOPIC REQUIRED? NO; REVIEW REQ? NO
[2016-12-04 17:18] LABS: ACETAMINOPHEN < 2 ug/ml (10-30)
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
[2016-12-04] MEDS ORDERED: XYLOCAINE 1%/SOD BICARB 20 ML VIAL INFIL ONE ×2 (17:30→17:45)
[2016-12-04] MEDS ORDERED: LORAZEPAM 1 MG TAB SL STA (17:31)
[2016-12-04 17:37] LABS: BENZODIAZEPINE, URINE NEG (NEG); COCAINE,URINE NEG (NEG); PHENCYCLIDINE, URINE NEG (NEG)
[2016-12-04] MEDS ORDERED: OXYCODONE HCL IR 5 MG TAB (IMMEDIATE RELEASE) PO STA (21:39)
[2016-12-04] MEDS ORDERED: DIPHTHERIA/TETANUS/PERTUSSIS 0.5 ML SYR/VIAL IM. ONE (21:45)
[2016-12-04 23:10] VITALS: BP 170/75; PULSE 119; TEMP 36.7; O2SAT 98
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
== END 2016-12-04 23:08 ==
LOC: EDBD 13:15 → C.EDB 13:17 → C.EDA 23:08
DX: S11.91XA Laceration without foreign body of unspecified part of neck, initial encounter (principal); S41.019A Laceration without foreign body of unspecified shoulder, initial encounter; S21.211A Laceration without foreign body of right back wall of thorax without penetration into thoracic cavity, initial encounter; S21.212A Laceration without foreign body of left back wall of thorax without penetration into thoracic cavity, initial encounter; S61.512A Laceration without foreign body of left wrist, initial encounter; S61.511A Laceration without foreign body of right wrist, initial encounter; X78.9XXA Intentional self-harm by unspecified sharp object, initial encounter; R45.851 Suicidal ideations; F17.200 Nicotine dependence, unspecified, uncomplicated; Z23 Encounter for immunization